=== PATIENT | female | born 1970 | race Caucasian/White ===

== ENCOUNTER → 2019-02-07 | Outpatient (CLI) | payer OTHER ==
[2019-02-07 16:27] VITALS: BP 133/84; PULSE 97; RESP 16; TEMP 98.2; BMI 36.6
--- NOTE | 2019-02-07 22:28 | P.BASOAP ---
Subjective Progress Note Date: 02/07/19 Principal diagnosis: Morbid obesity Patient well-known to our service. Patient was recently found to be iron deficiency anemia positive. She is due for screening colonoscopy. Denies rectal bleeding or melena. She does take NSAIDs for rheumatoid. In October had 0.2 cc of fluid removed for a total of 2.6 cc. Her reflux symptoms resolved following that. Objective - Vital Signs Vital signs: Vital Signs Temp 98.2 F 02/07/19 16:23 Pulse 97 02/07/19 16:23 Resp 16 02/07/19 16:23 BP 133/84 02/07/19 16:23 Pulse Ox Intake & Output 02/07/19 02/07/19 02/08/19 06:59 18:59 06:59 Weight 90.804 kg - Exam Abdomen: Soft, nontender, nondistended Assessment/Plan (1) Morbid obesity Narrative/Plan: We'll proceed with upper endoscopy for iron deficiency anemia and colonoscopy for screening. Band and 2.6 cc Plan: Date: 02/07/19 Initial Weight: 90.804 kg Initial BMI: 36.6 Current Weight: 90.804 kg Current BMI: 36.6 Type of Surgery: Adjustable Gastric Banding Total Volume in Band: Previous Volume: Volume Removed: Volume Added: Band Size:
== END | disposition home or self-care (01) ==
LOC: BARWHC3 15:35
PROVIDERS: ATTEND Surgery
DX: E66.01 Morbid (severe) obesity due to excess calories (principal); D50.9 Iron deficiency anemia, unspecified; M06.9 Rheumatoid arthritis, unspecified; Z68.36 Body mass index [BMI] 36.0-36.9, adult; Z98.84 Bariatric surgery status; Z79.1 Long term (current) use of non-steroidal anti-inflammatories (NSAID)
CPT/HCPCS: 99211

== ENCOUNTER → 2021-10-21 | Outpatient (CLI) | payer OTHER ==
[2021-10-21 13:33] VITALS: BP 142/88; PULSE 87; RESP 16; BMI 39.9
--- NOTE | 2021-10-21 14:57 | P.BASOAP ---
Subjective Progress Note Date: 10/21/21 Principal diagnosis: Morbid obesity Patient returns for bariatric evaluation. October 2018 the patient had 0.2 mL removed. At the time the patient was noted to be iron deficient. She then underwent upper and lower endoscopy. Is found have a moderate size colon polyp and 3 year follow-up was advised. Recently was told again that she has iron deficiency anemia and repeat upper and lower endoscopy was advised by her primary care physician. Patient says she is considering having more fluid added to her band however does have a sensation that she is stacking food in her esophagus at times. Eating poorly because of some depression issues. She also started drinking soda once again but has since stopped. Weight has gone up recently. She is on antiacids for GERD symptoms. Objective - Vital Signs Vital signs: Vital Signs Temp Pulse 87 10/21/21 13:27 Resp 16 10/21/21 13:27 BP 142/88 10/21/21 13:27 Pulse Ox FiO2 Intake & Output 10/20/21 10/21/21 10/21/21 18:59 06:59 18:59 Weight 98.883 kg - Exam Abdomen: Soft, nontender, nondistended Assessment/Plan (1) Morbid obesity Narrative/Plan: 51-year-old female with morbid obesity and persistent iron deficiency anemia. We'll check esophagogram as patient is requesting a fill and I am not sure if there is room there to add any additional fluid. Following that we'll proceed with upper and lower endoscopy for iron deficiency anemia, GERD, history of colon polyp. No fill today. Plan: Date: 10/21/21 Initial Weight: 90.804 kg Initial BMI: 36.6 Current Weight: 98.883 kg Current BMI: 39.9 Type of Surgery: Adjustable Gastric Banding Total Volume in Band: Previous Volume: Volume Removed: Volume Added: Band Size:
--- NOTE | 2021-10-21 15:14 | FL ---
EXAMINATION TYPE: FL barium swallow DATE OF EXAM: 10/21/2021 LIMITED UGI-ESOPHAGRAM: CLINICAL HISTORY: Morbid Obesity, lap band placed earlier today. TECHNIQUE: Limited esophagram is performed utilizing 20 oz of Omnipaque 350. A total of 26 seconds o f fluoroscopic time was utilized during procedure. 5 images submitted. FINDINGS: The patient swallowed contrast without difficulty or delay. Esophageal peristalsis and mo tility are within normal limits. There is moderate delay at the level of the lap band. Scoliosis and degenerative change of the spine. Lap band is somewhat rotated.. Surgical clips in the gallbladder fo ssa are seen and is postsurgical change in the pelvis. Arthropathy of the hips.. IMPRESSION: 1. Moderate delay at the level the GE junction. The band may be slightly rotated on the single image provided and should be correlated clinically to assess the lap band ring for slippage or early prolap se changes.
== END | disposition home or self-care (01) ==
LOC: BARWHC3 13:16
PROVIDERS: ATTEND Surgery
DX: R13.10 Dysphagia, unspecified (principal)
CPT/HCPCS: 74220; 99211

== ENCOUNTER 2021-11-11 10:53 | Day surgery (SDC) | payer OTHER ==
[2021-11-06 13:49] VITALS: BMI 39.9
[~2021-11-11 10:53] MED LIST: LACTATED RINGERS 1,000 ML IV SCH; LIDOCAINE 1% (10MG/ML) FOR IV START INTRADERMA PRN
[2021-11-11 11:21] VITALS: RESP 16; TEMP 97.5
[2021-11-11] MEDS ORDERED: PROPOFOL 10 MG/ML 20 ML VIAL IV ONE (11:51)
[2021-11-11] MEDS ORDERED: LIDOCAINE 2% INJ 20 MG/ML (2 ML VIAL) ONE (11:51)
--- NOTE | 2021-11-11 11:56 | P.GSHP ---
History of Present Illness H&P Date: 11/11/21 Chief Complaint: GERD, anemia, colon polyp 51-year-old female here today for upper and lower endoscopy. Patient with history of lap band in the past. Recent upper GI showed band is too tight. Needs to have fluid removed. Patient with mild reflux. Actually wanted more fl uids added to her band. Patient with history of moderate size colon polyp 3 years ago that was removed. Three-year follow-up was advised. No rectal bleeding or melena. Patient recently found to be iron deficient anemic once again. Past Medical History Past Medical History: Blood Disorder, GERD/Reflux, Rheumatoid Arthritis (RA) Additional Past Medical History / Comment(s): hx colon polyps, anemia, MTHFR History of Any Multi-Drug Resistant Organisms: None Reported Past Surgical History: Bariatric Surgery, Breast Surgery, Section, Cholecystectomy, Orthopedic Surgery Additional Past Surgical History / Comment(s): lap band 2004, breast augmenta tion, D&C x 2, Right arm surgery x 3 for rx, panniculectomy Past Anesthesia/Blood Transfusion Reactions: No Reported Reaction Smoking Status: Former smoker - Past Family History Mother Family Medical History: No Reported History Medications and Allergies Home Medications Medication Instructions Recorded Confirmed Type Escitalopram [Lexapro] 30 mg PO DAILY 02/14/19 11/06/21 History Hydroxychloroquine Sulfate 200 mg PO DAILY 02/14/19 11/06/21 History [Plaquenil] LORazepam [Ativan] 0.5 mg PO DIRECTED PRN 02/14/19 11/06/21 History Omeprazole [PriLOSEC] 20 mg PO DAILY 02/14/19 11/06/21 History traMADol HCL 50 mg PO BID PRN 02/14/19 11/06/21 History QUEtiapine [SEROquel] 100 mg PO HS 10/21/21 11/06/21 History Diclofenac Sodium [Voltaren] 75 mg PO BID PRN 11/06/21 11/06/21 History busPIRone HCL 15 mg PO TID 11/06/21 11/06/21 History Allergies Allergy/AdvReac Type Severity Reaction Status Date / Time ketorolac [From Toradol] Allergy Severe Rash/Hives Verified 11/11/21 11:14 codeine Allergy Rash/Hives Verified 11/11/21 11:14 Corticosteroids Allergy Swelling Verified 11/11/21 11:14 (Glucocorticoids) doxycycline [From Vibramycin] Allergy Rash/Hives Verified 11/11/21 11:14 Penicillins Allergy Rash/Hives Verified 11/11/21 11:14 Sulfa (Sulfonamide Allergy Rash/Hives Verified 11/11/21 11:14 Antibiotics) Surgical - Exam Vital Signs Temp Pulse Resp BP Pulse Ox 97.5 F L 108 H 16 139/64 97 11/11/21 11:20 11/11/21 11:20 11/11/21 11:20 11/11/21 11:20 11/11/21 11:20 Physical exam: General: Well-developed, well-nourished HEENT: Normocephalic, sclerae nonicteric Abdomen: Nontender, nondistended Extremities: No edema Neuro: Alert and oriented Assessment and Plan (1) Colon polyp Narrative/Plan: Will proceed with upper and lower endoscopy. We'll loosen the patient's lap band. Current Visit: Yes Status: Acute Code(s): K63.5 - POLYP OF COLON SNOMED Code(s): 11616529
--- NOTE | 2021-11-11 12:15 | P.PCN ---
Date of Procedure: 11/11/21 Procedure(s) Performed: PREOPERATIVE DIAGNOSIS: GERD, colon polyps, iron deficiency anemia POSTOPERATIVE DIAGNOSIS: Minimal gastritis, normal colon PROCEDURE: 1. EGD with biopsy 2. Colonoscopy 3. Lap band adjustment ANESTHESIA: MAC SURGEON: Stu Kilgore M.D. SPECIMENS: Antrum ENDOSCOPIC PROCEDURE: The patient was on the endoscopy table in the left decubitus position. The Olympus gastroscope was inserted into the oropharynx and passed under direct visualization to the region of the third portion of the duodenum. From that point the scope was slowly withdrawn inspecting all surfaces carefully. There were no neoplastic inflammatory or polypoid lesions throughout the duodenum. The pylorus was widely patent. The stomach was carefully inspected. There was minimal gastritis. A biopsy of the antrum took place to rule out H. pylori. Retroflexion revealed a normal lap band plication. The pouch appeared normal in size. There was no evidence of erosion or prolapse. The esophagus was then carefully examined. There were no neoplastic inflammatory or polypoid lesions throughout the visualized esophagus. The patient was kept on the endoscopy table in the left decubitus position. The Olympus colonoscope was inserted into the anus and passed under direct visualization to the base of the cecum. The appendiceal orifice was visualized. From that point the scope was slowly withdrawn inspecting all surfaces carefully. There were no neoplastic inflammatory or polypoid lesions throughout the cecum, ascending, transverse, descending, sigmoid and rectum. There was no visible diverticulosis noted. Digital rectal examination was normal. The patient was taken to the recovery room in stable condition per anesthesia guidelines. RECOMMENDATIONS: Await biopsy results. No GI findings explain anemia. Patient's lap band was emptied. Patient may benefit from lap band removal and c onversion to alternative bariatric procedure. Will discuss further with the patient at the time of her next bariatric clinic appointment.
[2021-11-11 12:42] VITALS: BP 112/78; PULSE 87
== END 2021-11-11 13:09 | disposition home or self-care (01) ==
LOC: ORWHC2ENDO 10:53
PROVIDERS: ATTEND Surgery
DX: K29.50 Unspecified chronic gastritis without bleeding (principal); K21.9 Gastro-esophageal reflux disease without esophagitis; D50.9 Iron deficiency anemia, unspecified; Z86.010 Personal history of colon polyps; M06.9 Rheumatoid arthritis, unspecified; D75.9 Disease of blood and blood-forming organs, unspecified; Z98.84 Bariatric surgery status; Z90.49 Acquired absence of other specified parts of digestive tract; Z87.891 Personal history of nicotine dependence; Z79.899 Other long term (current) drug therapy; Z88.6 Allergy status to analgesic agent; Z88.5 Allergy status to narcotic agent; Z88.8 Allergy status to other drugs, medicaments and biological substances; Z88.1 Allergy status to other antibiotic agents; Z88.0 Allergy status to penicillin; Z88.2 Allergy status to sulfonamides
CPT/HCPCS: 88305; 45378; 43239; J2704; J2001